=== PATIENT | male | born 1965 | race African-American/Black ===

== ENCOUNTER 2019-12-24 06:21 | Inpatient (IN) | payer MEDICAID ==
[~2019-12-24] VITALS: Ht 170.2 cm; Wt 56.7 kg
[~2019-12-24 06:21] MED LIST: AMLO10TA4 PO; ATEN-177 PO; BENA20TA77 PO; ECOTRIN PO; EPIVIR PO; ETRA25TA PO; LOSA25TA3 PO; RALT100T PO; TERA2CAP16 PO; TRAM50TA94 PO
[2019-12-24] MEDS ORDERED: SODIUM CHLORIDE 0.9% 250 ML IV ONE ×2 (06:45→08:15)
[2019-12-24 07:26] LABS: BASOPHILS % 0.7 % (0.0-2.0); EOSINOPHILS % 0.9 % (0.0-5.0); HEMATOCRIT. 25.7 % (42.0-52.0); HEMOGLOBIN. 8.6 g/dL (14.0-18.0); LYMPHOCYTES % 19.3 % (20.0-50.0); MEAN CORPUSCULAR HEMOGLOBIN 32.7 pg (28.0-32.0); MEAN CORPUSCULAR VOLUME 97.9 fL (80.0-94.0); MEAN PLATELET VOLUME 8.1 fl (7.4-10.4); MONOCYTES % 8.1 % (2.0-8.0); PLATELET 181 x1000/uL (130-400); RED BLOOD CELL COUNT 2.62 mill/uL (4.7-6.1); RED CELL DISTRIBUTION WIDTH 17.1 % (11.6-14.6)
[2019-12-24 07:34] LABS: CHLORIDE 104 mEq/L (98-107)
[2019-12-24 07:41] LABS: INR 1.2; PROTHROMBIN TIME 12.4 sec (9.6-11.0)
[2019-12-24] MEDS ORDERED: PIPERACILLIN/TAZ 3.375G PREMIX 50 ML IV ONE (08:15)
[2019-12-24] MEDS ORDERED: VANCOMYCIN 1 G PREMIX 200 ML IV ONE (08:15)
[2019-12-24] MEDS: VANCOMYCIN 500 MG PREMIX 100 ML IV NR ×2 (10:36→13:44)
[2019-12-24 15:38] VITALS: BP 103/61
[2019-12-24] MEDS ORDERED: ACETAMINOPHEN 325MG TABLET PO PRN (15:45)
[2019-12-24] MEDS ORDERED: DOCUSATE SODIUM 100MG CAPSULE PO PRN (15:45)
[2019-12-24] MEDS ORDERED: NON FORMULARY PATIENT HOME MED XX SCH (15:45)
[2019-12-24] MEDS ORDERED: HYDROCODONE/ACETAMINOPHEN 5/325MG TABLET PO PRN (15:45)
[2019-12-24] MEDS ORDERED: IPRATROPIUM/ALBUTEROL 0.5-3(2.5)MG/3ML NEB HHN PRN (15:45)
[2019-12-24] MEDS ORDERED: ONDANSETRON HCL 4MG/2ML INJ IV PRN (15:45)
[2019-12-24] MEDS ORDERED: LORAZEPAM 0.5MG TABLET PO PRN (15:45)
[2019-12-24 16:00] VITALS: BP 93/58
[2019-12-24] MEDS: PANTOPRAZOLE SODIUM 40 MG/VIAL IV SCH (17:22)
[2019-12-24] MEDS: PIPERACILLIN/TAZOBACTAM 2.25 G in DEXTROSE 5% WATER 50 ML IV SCH (17:22)
[2019-12-24 20:00] VITALS: BP_SYST 89; BP_SYST 98; BP_SYST 99; BP_DIAS 53; BP_DIAS 54; BP_DIAS 56
[2019-12-24 20:29] LABS: FOLIC ACID (FOLATE) SERUM 16.5 ng/mL (>5.38)
[2019-12-25] VITALS: BP 100/50
[2019-12-25] MEDS: PIPERACILLIN/TAZOBACTAM 2.25 G in DEXTROSE 5% WATER 50 ML IV SCH ×3 (03:23→17:11)
[2019-12-25 04:00] VITALS: BP 99/56
[2019-12-25 07:10] LABS: BASOPHILS % 0.3 % (0.0-2.0); EOSINOPHILS % 0.5 % (0.0-5.0); HEMATOCRIT. 26.5 % (42.0-52.0); HEMOGLOBIN. 8.8 g/dL (14.0-18.0); LYMPHOCYTES % 8.2 % (20.0-50.0); MEAN CORPUSCULAR HEMOGLOBIN 32.9 pg (28.0-32.0); MEAN CORPUSCULAR VOLUME 99.5 fL (80.0-94.0); MEAN PLATELET VOLUME 8.4 fl (7.4-10.4); MONOCYTES % 7.8 % (2.0-8.0); NEUTROPHILS % 83.2 % (40.0-76.0); PLATELET 175 x1000/uL (130-400); RED BLOOD CELL COUNT 2.67 mill/uL (4.7-6.1); RED CELL DISTRIBUTION WIDTH 17.5 % (11.6-14.6)
[2019-12-25 08:00] VITALS: BP_SYST 100; BP_SYST 96; BP_SYST 99; BP_DIAS 55; BP_DIAS 56; BP_DIAS 62
[2019-12-25] MEDS: PANTOPRAZOLE SODIUM 40 MG/VIAL IV SCH ×2 (09:59→17:11)
[2019-12-25] MEDS: SODIUM HYPOCHLORITE 0.125% 473ML SOLUTION TOP SCH (09:59)
[2019-12-25 12:00] VITALS: BP 105/69
[2019-12-25] MEDS ORDERED: VANCOMYCIN 500 MG PREMIX 100 ML IV SCH (12:00)
[2019-12-25 16:00] VITALS: BP 109/68
[2019-12-25 20:00] VITALS: BP 115/74
[2019-12-26] VITALS: BP 115/75
[2019-12-26] MEDS: PIPERACILLIN/TAZOBACTAM 2.25 G in DEXTROSE 5% WATER 50 ML IV SCH ×3 (02:28→17:58)
[2019-12-26 04:00] VITALS: BP 156/75
[2019-12-26 07:11] LABS: BASOPHILS % 0.7 % (0.0-2.0); EOSINOPHILS % 0.5 % (0.0-5.0); HEMATOCRIT. 27.7 % (42.0-52.0); HEMOGLOBIN. 9.2 g/dL (14.0-18.0); LYMPHOCYTES % 12.8 % (20.0-50.0); MEAN CORPUSCULAR VOLUME 98.8 fL (80.0-94.0); MEAN PLATELET VOLUME 8.3 fl (7.4-10.4); PLATELET 158 x1000/uL (130-400); RED CELL DISTRIBUTION WIDTH 17.1 % (11.6-14.6)
[2019-12-26 08:00] VITALS: BP 132/81
[2019-12-26] MEDS: PANTOPRAZOLE SODIUM 40 MG/VIAL IV SCH ×2 (09:23→16:51)
[2019-12-26] MEDS: SODIUM HYPOCHLORITE 0.125% 473ML SOLUTION TOP SCH (09:23)
[2019-12-26 12:00] VITALS: BP_SYST 135; BP_SYST 139; BP_SYST 156; BP_DIAS 106; BP_DIAS 84; BP_DIAS 98
[2019-12-26 16:00] VITALS: BP 104/66
[2019-12-26] MEDS ORDERED: VANCOMYCIN 500 MG PREMIX 100 ML IV SCH (18:00)
[2019-12-26 20:25] VITALS: BP 133/77
[2019-12-27 00:18] VITALS: BP 148/85
[2019-12-27] MEDS: PIPERACILLIN/TAZOBACTAM 2.25 G in DEXTROSE 5% WATER 50 ML IV SCH ×2 (03:12→09:31)
[2019-12-27 04:00] VITALS: BP 193/83
[2019-12-27 06:04] LABS: BASOPHILS % 0.4 % (0.0-2.0); EOSINOPHILS % 0.2 % (0.0-5.0); HEMATOCRIT. 27.5 % (42.0-52.0); HEMOGLOBIN. 9.2 g/dL (14.0-18.0); LYMPHOCYTES % 11.1 % (20.0-50.0); MEAN CORPUSCULAR HEMOGLOBIN 33.1 pg (28.0-32.0); MEAN CORPUSCULAR VOLUME 98.6 fL (80.0-94.0); MONOCYTES % 7.7 % (2.0-8.0); NEUTROPHILS % 80.6 % (40.0-76.0); PLATELET 183 x1000/uL (130-400); RED BLOOD CELL COUNT 2.79 mill/uL (4.7-6.1)
[2019-12-27 08:00] VITALS: BP 152/69
[2019-12-27] MEDS: PANTOPRAZOLE SODIUM 40 MG/VIAL IV SCH ×2 (09:31→17:27)
[2019-12-27] MEDS: SODIUM HYPOCHLORITE 0.125% 473ML SOLUTION TOP SCH (09:32)
[2019-12-27 12:00] VITALS: BP 130/82
[2019-12-27 16:00] VITALS: BP 136/76
[2019-12-27 16:25] LABS: HEPATITIS A AB IGM NEGATIVE (NEGATIVE)
[2019-12-27 16:55] LABS: HEPATITIS B SURFACE ANTIGEN REACTIVE PEND CONFIR
[2019-12-27 20:00] VITALS: BP 169/76
[2019-12-27] MEDS: METOPROLOL TARTRATE 25MG TABLET PO SCH (21:24)
[2019-12-28] VITALS: BP 128/74
[2019-12-28] MEDS: CLONIDINE 0.1MG TABLET PO PRN (01:16)
[2019-12-28 04:00] VITALS: BP_SYST 110; BP_SYST 114; BP_SYST 163; BP_DIAS 105; BP_DIAS 60; BP_DIAS 69
[2019-12-28 06:56] LABS: BASOPHILS % 0.2 % (0.0-2.0); EOSINOPHILS % 0.1 % (0.0-5.0); HEMATOCRIT. 22.7 % (42.0-52.0); HEMOGLOBIN. 7.7 g/dL (14.0-18.0); LYMPHOCYTES % 10.2 % (20.0-50.0); MEAN CORPUSCULAR HEMOGLOBIN 33.2 pg (28.0-32.0); MEAN CORPUSCULAR VOLUME 97.4 fL (80.0-94.0); MEAN PLATELET VOLUME 8.1 fl (7.4-10.4); NEUTROPHILS % 82.5 % (40.0-76.0); PLATELET 149 x1000/uL (130-400); RED BLOOD CELL COUNT 2.33 mill/uL (4.7-6.1); RED CELL DISTRIBUTION WIDTH 16.9 % (11.6-14.6)
[2019-12-28 08:00] VITALS: BP 157/89
[2019-12-28] MEDS: METOPROLOL TARTRATE 25MG TABLET PO SCH ×2 (08:34→20:35)
[2019-12-28] MEDS: SODIUM HYPOCHLORITE 0.125% 473ML SOLUTION TOP SCH (08:34)
[2019-12-28] MEDS: PANTOPRAZOLE SODIUM 40 MG/VIAL IV SCH ×2 (08:34→17:04)
[2019-12-28 12:00] VITALS: BP 122/74
[2019-12-28 12:45] LABS: T4 FREE 1.19 ng/dL (0.76-1.46)
[2019-12-28 16:00] VITALS: BP 154/86
[2019-12-28 20:00] VITALS: BP 145/64
[2019-12-29] VITALS: BP 115/94
[2019-12-29 04:00] VITALS: BP_SYST 119; BP_SYST 136; BP_DIAS 73; BP_DIAS 80
[2019-12-29 08:00] VITALS: BP 140/82
[2019-12-29 08:00] LABS: BASOPHILS % 0.5 % (0.0-2.0); EOSINOPHILS % 0.1 % (0.0-5.0); HEMATOCRIT. 23.7 % (42.0-52.0); HEMOGLOBIN. 8.1 g/dL (14.0-18.0); LYMPHOCYTES % 12.7 % (20.0-50.0); MEAN CORPUSCULAR HEMOGLOBIN 33.7 pg (28.0-32.0); MEAN CORPUSCULAR VOLUME 98.9 fL (80.0-94.0); MEAN PLATELET VOLUME 8.5 fl (7.4-10.4); MONOCYTES % 6.7 % (2.0-8.0); PLATELET 176 x1000/uL (130-400); RED CELL DISTRIBUTION WIDTH 16.6 % (11.6-14.6)
[2019-12-29] MEDS: METOPROLOL TARTRATE 25MG TABLET PO SCH ×2 (09:07→21:13)
[2019-12-29] MEDS: SODIUM HYPOCHLORITE 0.125% 473ML SOLUTION TOP SCH (09:08)
[2019-12-29] MEDS: PANTOPRAZOLE SODIUM 40 MG/VIAL IV SCH ×2 (09:08→17:50)
[2019-12-29 12:00] VITALS: BP 154/85
[2019-12-29 16:00] VITALS: BP 123/80
[2019-12-29 20:00] VITALS: BP 136/79
[2019-12-30] VITALS: BP_SYST 116; BP_SYST 120; BP_DIAS 75; BP_DIAS 80
[2019-12-30 04:00] VITALS: BP 110/76
[2019-12-30 07:31] LABS: BASOPHILS % 0.2 % (0.0-2.0); EOSINOPHILS % 0.3 % (0.0-5.0); HEMATOCRIT. 24.9 % (42.0-52.0); HEMOGLOBIN. 8.2 g/dL (14.0-18.0); LYMPHOCYTES % 19.3 % (20.0-50.0); MEAN CORPUSCULAR HEMOGLOBIN 32.4 pg (28.0-32.0); MEAN CORPUSCULAR VOLUME 98.7 fL (80.0-94.0); MEAN PLATELET VOLUME 8.1 fl (7.4-10.4); MONOCYTES % 9.2 % (2.0-8.0); PLATELET 172 x1000/uL (130-400); RED BLOOD CELL COUNT 2.52 mill/uL (4.7-6.1); RED CELL DISTRIBUTION WIDTH 16.8 % (11.6-14.6)
[2019-12-30 08:00] VITALS: BP 171/84
[2019-12-30] MEDS: CLONIDINE 0.1MG TABLET PO PRN (09:13)
[2019-12-30] MEDS: METOPROLOL TARTRATE 25MG TABLET PO SCH (09:13)
[2019-12-30] MEDS: SODIUM HYPOCHLORITE 0.125% 473ML SOLUTION TOP SCH (09:14)
[2019-12-30] MEDS: PANTOPRAZOLE SODIUM 40 MG/VIAL IV SCH ×2 (09:14→17:23)
[2019-12-30 12:00] VITALS: BP 117/63
[2019-12-30 16:00] VITALS: BP 125/64
[2019-12-30 20:00] VITALS: BP 130/76
[2019-12-30] MEDS: METOPROLOL TARTRATE 50MG TABLET PO SCH (21:01)
[2019-12-30] MEDS: ACETAMINOPHEN 325MG TABLET PO PRN (21:17)
[2019-12-31] VITALS: BP 103/57
[2019-12-31 04:00] VITALS: BP 110/60
[2019-12-31 08:00] VITALS: BP 130/86
[2019-12-31] MEDS: PANTOPRAZOLE SODIUM 40 MG/VIAL IV SCH ×2 (08:45→17:09)
[2019-12-31] MEDS: METOPROLOL TARTRATE 50MG TABLET PO SCH ×2 (08:46→21:28)
[2019-12-31] MEDS: SODIUM HYPOCHLORITE 0.125% 473ML SOLUTION TOP SCH (08:46)
[2019-12-31 08:56] LABS: BASOPHILS % 0.3 % (0.0-2.0); EOSINOPHILS % 0.5 % (0.0-5.0); HEMATOCRIT. 26.4 % (42.0-52.0); HEMOGLOBIN. 8.8 g/dL (14.0-18.0); LYMPHOCYTES % 9.2 % (20.0-50.0); MEAN CORPUSCULAR HEMOGLOBIN 32.2 pg (28.0-32.0); MEAN CORPUSCULAR VOLUME 97.1 fL (80.0-94.0); MEAN PLATELET VOLUME 8.4 fl (7.4-10.4); MONOCYTES % 6.7 % (2.0-8.0); NEUTROPHILS % 83.3 % (40.0-76.0); PLATELET 207 x1000/uL (130-400); RED BLOOD CELL COUNT 2.72 mill/uL (4.7-6.1); RED CELL DISTRIBUTION WIDTH 16.4 % (11.6-14.6)
[2019-12-31 12:00] VITALS: BP 132/80
[2019-12-31 16:00] VITALS: BP 110/70
[2019-12-31 20:00] VITALS: BP 119/70
[2020-01-01] VITALS: BP 116/68
[2020-01-01 04:00] VITALS: BP 125/70
[2020-01-01 08:00] VITALS: BP 178/86
[2020-01-01] MEDS: PANTOPRAZOLE SODIUM 40 MG/VIAL IV SCH ×2 (08:22→17:42)
[2020-01-01] MEDS: METOPROLOL TARTRATE 50MG TABLET PO SCH ×2 (08:23→22:01)
[2020-01-01] MEDS: SODIUM HYPOCHLORITE 0.125% 473ML SOLUTION TOP SCH (08:23)
[2020-01-01] MEDS: CLONIDINE 0.1MG TABLET PO PRN (08:23)
[2020-01-01 11:56] LABS: BASOPHILS % 0.5 % (0.0-2.0); EOSINOPHILS % 0.4 % (0.0-5.0); HEMATOCRIT. 23.3 % (42.0-52.0); HEMOGLOBIN. 7.9 g/dL (14.0-18.0); LYMPHOCYTES % 14.5 % (20.0-50.0); MEAN CORPUSCULAR HEMOGLOBIN 32.8 pg (28.0-32.0); MEAN CORPUSCULAR VOLUME 97.3 fL (80.0-94.0); MEAN PLATELET VOLUME 7.8 fl (7.4-10.4); MONOCYTES % 5.7 % (2.0-8.0); NEUTROPHILS % 78.9 % (40.0-76.0); PLATELET 161 x1000/uL (130-400); RED BLOOD CELL COUNT 2.39 mill/uL (4.7-6.1); RED CELL DISTRIBUTION WIDTH 16.2 % (11.6-14.6)
[2020-01-01 12:00] VITALS: BP 118/56
[2020-01-01 16:00] VITALS: BP 105/72
[2020-01-01 20:00] VITALS: BP 128/77
[2020-01-01] MEDS: ACETAMINOPHEN 325MG TABLET PO PRN (22:01)
[2020-01-02] VITALS: BP 114/66
[2020-01-02 04:00] VITALS: BP 116/61
[2020-01-02 06:47] LABS: BASOPHILS % 0.4 % (0.0-2.0); EOSINOPHILS % 0.2 % (0.0-5.0); HEMATOCRIT. 22.4 % (42.0-52.0); HEMOGLOBIN. 7.4 g/dL (14.0-18.0); LYMPHOCYTES % 17.7 % (20.0-50.0); MEAN CORPUSCULAR HEMOGLOBIN 32.4 pg (28.0-32.0); MEAN CORPUSCULAR VOLUME 97.8 fL (80.0-94.0); MEAN PLATELET VOLUME 8.1 fl (7.4-10.4); MONOCYTES % 5.7 % (2.0-8.0); PLATELET 151 x1000/uL (130-400); RED BLOOD CELL COUNT 2.29 mill/uL (4.7-6.1); RED CELL DISTRIBUTION WIDTH 16.6 % (11.6-14.6)
[2020-01-02 08:00] VITALS: BP 123/66
[2020-01-02] MEDS: METOPROLOL TARTRATE 50MG TABLET PO SCH ×2 (09:00→21:05)
[2020-01-02] MEDS: PANTOPRAZOLE SODIUM 40 MG/VIAL IV SCH ×2 (10:52→17:51)
[2020-01-02 12:00] VITALS: BP 136/79
[2020-01-02 17:00] VITALS: BP 132/75
[2020-01-02 20:00] VITALS: BP 134/86
[2020-01-02] MEDS ORDERED: EPOETIN ALFA 10000UNITS/ML VIAL SUBCUT SCH (21:00)
[2020-01-02] MEDS: ACETAMINOPHEN 325MG TABLET PO PRN (21:05)
[2020-01-03] VITALS: BP 119/71
[2020-01-03 04:00] VITALS: BP 115/71
[2020-01-03 06:41] LABS: BASOPHILS % 0.4 % (0.0-2.0); EOSINOPHILS % 0.2 % (0.0-5.0); HEMATOCRIT. 22.3 % (42.0-52.0); HEMOGLOBIN. 7.4 g/dL (14.0-18.0); LYMPHOCYTES % 18.7 % (20.0-50.0); MEAN CORPUSCULAR HEMOGLOBIN 32.4 pg (28.0-32.0); MEAN CORPUSCULAR VOLUME 98.2 fL (80.0-94.0); MEAN PLATELET VOLUME 8.1 fl (7.4-10.4); NEUTROPHILS % 75.7 % (40.0-76.0); PLATELET 145 x1000/uL (130-400); RED BLOOD CELL COUNT 2.27 mill/uL (4.7-6.1); RED CELL DISTRIBUTION WIDTH 16.2 % (11.6-14.6)
[2020-01-03 08:00] VITALS: BP 123/68
[2020-01-03] MEDS: PANTOPRAZOLE SODIUM 40 MG/VIAL IV SCH ×2 (09:04→17:58)
[2020-01-03] MEDS: METOPROLOL TARTRATE 50MG TABLET PO SCH ×2 (09:05→21:33)
[2020-01-03 12:00] VITALS: BP 129/69
[2020-01-03 16:00] VITALS: BP 133/76
[2020-01-03] MEDS: ACETAMINOPHEN 325MG TABLET PO PRN (17:58)
[2020-01-03 20:00] VITALS: BP 108/72
[2020-01-03] MEDS ORDERED: CEFEPIME 1,000 MG in DEXTROSE 5% WATER 50 ML IV SCH (20:00)
[2020-01-04] VITALS: BP_SYST 110; BP_SYST 123; BP_DIAS 68; BP_DIAS 70
[2020-01-04 04:00] VITALS: BP 114/64
[2020-01-04 07:39] LABS: BASOPHILS % 0.2 % (0.0-2.0); EOSINOPHILS % 0.4 % (0.0-5.0); HEMATOCRIT. 23.7 % (42.0-52.0); HEMOGLOBIN. 7.7 g/dL (14.0-18.0); LYMPHOCYTES % 16.9 % (20.0-50.0); MEAN CORPUSCULAR VOLUME 101.8 fL (80.0-94.0); MEAN PLATELET VOLUME 8.6 fl (7.4-10.4); MONOCYTES % 6.9 % (2.0-8.0); NEUTROPHILS % 75.6 % (40.0-76.0); PLATELET 131 x1000/uL (130-400); RED BLOOD CELL COUNT 2.33 mill/uL (4.7-6.1); RED CELL DISTRIBUTION WIDTH 16.7 % (11.6-14.6)
[2020-01-04 08:00] VITALS: BP 136/82
[2020-01-04] MEDS: METOPROLOL TARTRATE 50MG TABLET PO SCH (11:08)
[2020-01-04] MEDS: PANTOPRAZOLE SODIUM 40 MG/VIAL IV SCH (11:08)
[2020-01-04 12:00] VITALS: BP 115/79
[2020-01-04 15:32] VITALS: BP 129/72
[2020-01-04 16:00] VITALS: BP 129/72
== END 2020-01-04 16:25 | DRG 466 ==
LOC: ER 06:31 → EDBEDREQTM 06:38 → 5WST 09:49 → EDBEDREQ 10:03 → EDBEDREQSVC 10:03 → EDBEDREQTM 10:03
PROVIDERS: ADMIT Internal Medicine; ATTEND Internal Medicine
PROC: 05H533Z Insertion of Infusion Device into Right Subclavian Vein, Percutaneous Approach (ICD-10-PCS; principal; 2020-01-04)
PROC: B546ZZA Ultrasonography of Right Subclavian Vein, Guidance (ICD-10-PCS; 2020-01-04)
DX: T82.7XXA Infection and inflammatory reaction due to other cardiac and vascular devices, implants and grafts, initial encounter (principal); A41.9 Sepsis, unspecified organism; R65.21 Severe sepsis with septic shock; I12.0 Hypertensive chronic kidney disease with stage 5 chronic kidney disease or end stage renal disease; N18.6 End stage renal disease; D72.821 Monocytosis (symptomatic); I95.3 Hypotension of hemodialysis; D53.9 Nutritional anemia, unspecified; D63.1 Anemia in chronic kidney disease; B19.20 Unspecified viral hepatitis C without hepatic coma; C21.8 Malignant neoplasm of overlapping sites of rectum, anus and anal canal; F17.210 Nicotine dependence, cigarettes, uncomplicated; G62.9 Polyneuropathy, unspecified; G93.41 Metabolic encephalopathy; I31.3 Pericardial effusion (noninflammatory); I49.1 Atrial premature depolarization; I51.7 Cardiomegaly; K21.9 Gastro-esophageal reflux disease without esophagitis; M47.9 Spondylosis, unspecified; M48.061 Spinal stenosis, lumbar region without neurogenic claudication; Z21 Asymptomatic human immunodeficiency virus [HIV] infection status; F19.10 Other psychoactive substance abuse, uncomplicated; I82.622 Acute embolism and thrombosis of deep veins of left upper extremity; Z99.2 Dependence on renal dialysis; I69.30 Unspecified sequelae of cerebral infarction; Z85.048 Personal history of other malignant neoplasm of rectum, rectosigmoid junction, and anus; Z79.899 Other long term (current) drug therapy; E43 Unspecified severe protein-calorie malnutrition; Q27.8 Other specified congenital malformations of peripheral vascular system
CPT/HCPCS: 36415; 70551; 71045; 72141; 72146; 72148; 72192; 73700; 76937; 80048; 80053; 80061; 80202; 82270; 82607; 82728; 82746; 83540; 83550; 83605; 83735; 83880; 84145; 84439; 84443; 84481; 84484; 85025; 86705; 86709; 86803; 86850; 86900; 86920; 87340; 92523; 93005; 93306; 93971; 96365; 97162; 97166; 97530; 97535; 99291; C1725; C9113; J0692; J0885; J2405; J2543; J3370; J7050; J7060

== ENCOUNTER 2020-01-11 05:54 | Emergency (ER) | payer MEDICAID ==
[~2020-01-11] VITALS: Ht 177.8 cm; Wt 75.0 kg
[2020-01-11] MEDS ORDERED: ACETAMINOPHEN 325MG TABLET PO STA (06:16)
[2020-01-11 06:40] LABS: BASOPHILS % 0.4 % (0.0-2.0); EOSINOPHILS % 1.6 % (0.0-5.0); HEMATOCRIT. 24.5 % (42.0-52.0); HEMOGLOBIN. 8.1 g/dL (14.0-18.0); LYMPHOCYTES % 25.7 % (20.0-50.0); MEAN CORPUSCULAR HEMOGLOBIN 32.8 pg (28.0-32.0); MEAN CORPUSCULAR VOLUME 99.2 fL (80.0-94.0); MEAN PLATELET VOLUME 7.7 fl (7.4-10.4); NEUTROPHILS % 62.3 % (40.0-76.0); PLATELET 172 x1000/uL (130-400); RED BLOOD CELL COUNT 2.47 mill/uL (4.7-6.1); RED CELL DISTRIBUTION WIDTH 16.8 % (11.6-14.6)
[2020-01-11 06:47] LABS: CHLORIDE 100 mEq/L (98-107)
[2020-01-11 06:49] LABS: INR 1.1; PROTHROMBIN TIME 11.6 sec (9.6-11.0)
[2020-01-11 14:24] VITALS: BP 130/86
== END 2020-01-11 14:24 | disposition home or self-care (01) ==
LOC: ER 05:54 → SUPCPDRO 16:52
DX: R60.0 Localized edema (principal); I12.0 Hypertensive chronic kidney disease with stage 5 chronic kidney disease or end stage renal disease; N18.6 End stage renal disease; Z99.2 Dependence on renal dialysis
CPT/HCPCS: 36415; 71045; 80053; 83880; 85025; 93005; 93971; 99285

== ENCOUNTER 2020-02-29 09:37 | Inpatient (IN) | payer MEDICAID ==
[~2020-02-29] VITALS: Ht 170.2 cm; Wt 65.8 kg
[2020-02-29 10:30] LABS: BASOPHILS % 0.4 % (0.0-2.0); EOSINOPHILS % 0.4 % (0.0-5.0); HEMATOCRIT. 26.6 % (42.0-52.0); HEMOGLOBIN. 8.8 g/dL (14.0-18.0); LYMPHOCYTES % 13.8 % (20.0-50.0); MEAN CORPUSCULAR HEMOGLOBIN 32.3 pg (28.0-32.0); MEAN CORPUSCULAR VOLUME 97.2 fL (80.0-94.0); MEAN PLATELET VOLUME 8.5 fl (7.4-10.4); MONOCYTES % 4.5 % (2.0-8.0); NEUTROPHILS % 80.9 % (40.0-76.0); PLATELET 94 x1000/uL (130-400); RED BLOOD CELL COUNT 2.73 mill/uL (4.7-6.1); RED CELL DISTRIBUTION WIDTH 16.4 % (11.6-14.6)
[2020-02-29 10:37] LABS: CHLORIDE 97 mEq/L (98-107)
[2020-02-29] MEDS ORDERED: HEPARIN 5000 UNITS/ML VIAL IV PRN ×2 (12:45)
[2020-02-29] MEDS ORDERED: HEPARIN 5000 UNITS/ML VIAL IV SCH (12:45)
[2020-02-29 13:51] LABS: INR 1.1; PARTIAL THROMBOPLASTIN TIME 32.2 sec (23.4-31.0); PROTHROMBIN TIME 11.2 sec (9.6-11.0)
[2020-02-29] MEDS ORDERED: HEPARIN 25,000 UNITS PREMIX 250 ML IV PRN (14:30)
[2020-02-29] MEDS ORDERED: LORAZEPAM 0.5MG TABLET PO PRN (18:15)
[2020-02-29] MEDS ORDERED: ACETAMINOPHEN 325MG TABLET PO PRN (18:15)
[2020-02-29] MEDS ORDERED: CLONIDINE 0.1MG TABLET PO PRN (18:15)
[2020-02-29] MEDS ORDERED: IPRATROPIUM/ALBUTEROL 0.5-3(2.5)MG/3ML NEB HHN PRN (18:15)
[2020-02-29] MEDS ORDERED: DOCUSATE SODIUM 100MG CAPSULE PO PRN (18:15)
[2020-02-29] MEDS ORDERED: ONDANSETRON HCL 4MG/2ML INJ IV PRN (18:15)
[2020-02-29 18:42] VITALS: BP 139/83
[2020-02-29 19:10] VITALS: BP 139/83
[2020-02-29 20:00] VITALS: BP 139/83
[2020-02-29] MEDS ORDERED: ENOXAPARIN 60MG/0.6ML SYR SUBCUT SCH (20:00)
[2020-02-29 20:42] LABS: PHOSPHORUS 2.3 mg/dL (2.5-4.9)
[2020-02-29 22:00] VITALS: BP 125/75
[2020-03-01] VITALS (12 sets, daily range): BP systolic 104–129; BP diastolic 68–80
[2020-03-01] MEDS: ACETAMINOPHEN 325MG TABLET PO PRN (00:54)
[2020-03-01 07:05] LABS: BASOPHILS % 0.3 % (0.0-2.0); EOSINOPHILS % 0.6 % (0.0-5.0); HEMATOCRIT. 23.7 % (42.0-52.0); HEMOGLOBIN. 7.8 g/dL (14.0-18.0); LYMPHOCYTES % 15.4 % (20.0-50.0); MEAN CORPUSCULAR HEMOGLOBIN 31.9 pg (28.0-32.0); MEAN CORPUSCULAR VOLUME 96.8 fL (80.0-94.0); MEAN PLATELET VOLUME 10.3 fl (7.4-10.4); MONOCYTES % 5.6 % (2.0-8.0); NEUTROPHILS % 78.1 % (40.0-76.0); PLATELET 100 x1000/uL (130-400); RED BLOOD CELL COUNT 2.45 mill/uL (4.7-6.1); RED CELL DISTRIBUTION WIDTH 16.3 % (11.6-14.6)
[2020-03-01] MEDS: HYDROCODONE/ACETAMINOPHEN 5/325MG TABLET PO PRN ×2 (07:30→20:03)
[2020-03-01] MEDS ORDERED: ENOXAPARIN 60MG/0.6ML SYR SUBCUT SCH (09:00)
[2020-03-01] MEDS ORDERED: HEPARIN 5000 UNITS/ML VIAL SUBCUT SCH (09:00)
[2020-03-01] MEDS ORDERED: POTASSIUM CHLORIDE 20MEQ TABLET SR PO NR (11:00)
[2020-03-01] MEDS ORDERED: LIDOCAINE HCL 1% 20ML VIAL (Pyxis) INJ ONE (11:17)
[2020-03-01] MEDS ORDERED: NON FORMULARY PATIENT HOME MED XX SCH (12:00)
[2020-03-01] MEDS: AMLODIPINE 10MG TABLET PO SCH (12:32)
[2020-03-01] MEDS: PIPERACILLIN/TAZOBACTAM 2.25 G in DEXTROSE 5% WATER 50 ML IV SCH ×2 (12:32→20:26)
[2020-03-01] MEDS ORDERED: VANCOMYCIN 1250MG in DEXTROSE 5% WATER 250ML IV NR (13:00)
[2020-03-01] MEDS: SODIUM CHLORIDE 0.45% 1,000 ML IV SCH (13:28)
[2020-03-01] MEDS: ATENOLOL 50 MG TABLET PO SCH (13:31)
[2020-03-01] MEDS: LAMIVUDINE 150MG TABLET PO SCH (17:40)
[2020-03-01] MEDS: RALTEGRAVIR 400MG TABLET PO SCH (17:42)
[2020-03-01] MEDS: TERAZOSIN HCL 1MG CAPSULE PO SCH (20:33)
[2020-03-02] VITALS (32 sets, daily range): BP systolic 90–148; BP diastolic 58–87
[2020-03-02] MEDS: ACETAMINOPHEN 325MG TABLET PO PRN ×2 (00:44→18:31)
[2020-03-02] MEDS: PIPERACILLIN/TAZOBACTAM 2.25 G in DEXTROSE 5% WATER 50 ML IV SCH ×3 (03:04→21:47)
[2020-03-02 06:18] LABS: BASOPHILS % 0.7 % (0.0-2.0); EOSINOPHILS % 0.7 % (0.0-5.0); HEMATOCRIT. 21.4 % (42.0-52.0); HEMOGLOBIN. 7.1 g/dL (14.0-18.0); LYMPHOCYTES % 22.6 % (20.0-50.0); MEAN CORPUSCULAR HEMOGLOBIN 31.8 pg (28.0-32.0); MEAN CORPUSCULAR VOLUME 95.8 fL (80.0-94.0); MEAN PLATELET VOLUME 9.8 fl (7.4-10.4); MONOCYTES % 6.4 % (2.0-8.0); NEUTROPHILS % 69.6 % (40.0-76.0); PLATELET 98 x1000/uL (130-400); RED BLOOD CELL COUNT 2.24 mill/uL (4.7-6.1); RED CELL DISTRIBUTION WIDTH 15.5 % (11.6-14.6)
[2020-03-02 08:05] LABS: CHLORIDE 102 mEq/L (98-107)
[2020-03-02] MEDS ORDERED: IOHEXOL-300 50 ML BOTTLE IV ONE ×2 (08:09→09:32)
[2020-03-02] MEDS ORDERED: SODIUM BICARBONATE 4% (2.4MEQ) 5ML VIAL IV ONE (08:09)
[2020-03-02] MEDS ORDERED: LIDOCAINE HCL 1% 20ML VIAL (Pyxis) INJ ONE (08:10)
[2020-03-02 08:16] LABS: PHOSPHORUS 2.3 mg/dL (2.5-4.9)
[2020-03-02] MEDS ORDERED: HEPARIN 5000 UNITS/ML VIAL SUBCUT SCH (09:00)
[2020-03-02] MEDS: ATENOLOL 50 MG TABLET PO SCH (09:00)
[2020-03-02] MEDS: AMLODIPINE 10MG TABLET PO SCH (09:00)
[2020-03-02] MEDS ORDERED: FENTANYL CITRATE/PF 50MCG/ML 2ML VIAL IV ONE (09:35)
[2020-03-02] MEDS ORDERED: FENTANYL CITRATE/PF 50MCG/ML 2ML VIAL ONE (09:37)
[2020-03-02] MEDS: LAMIVUDINE 150MG TABLET PO SCH (11:12)
[2020-03-02] MEDS: RALTEGRAVIR 400MG TABLET PO SCH (11:12)
[2020-03-02] MEDS ORDERED: DIPHENHYDRAMINE 50MG CAPSULE PO NR (18:30)
[2020-03-02] MEDS ORDERED: VANCOMYCIN 500 MG PREMIX 100 ML IV SCH (19:30)
[2020-03-02 21:35] LABS: HEMATOCRIT 25.5 % (42.0-52.0); HEMOGLOBIN 8.6 g/dL (14.0-18.0)
[2020-03-02] MEDS: EPOETIN ALFA-EPBX 10,000 UNIT/ML VIAL SUBCUT SCH (21:48)
[2020-03-02] MEDS: TERAZOSIN HCL 1MG CAPSULE PO SCH (21:48)
[2020-03-02] MEDS: SODIUM CHLORIDE 0.45% 1,000 ML IV SCH (21:54)
[2020-03-03] VITALS (12 sets, daily range): BP systolic 94–138; BP diastolic 59–75
[2020-03-03 07:09] LABS: BASOPHILS % 0.6 % (0.0-2.0); EOSINOPHILS % 0.8 % (0.0-5.0); HEMATOCRIT. 24.3 % (42.0-52.0); HEMOGLOBIN. 8.2 g/dL (14.0-18.0); LYMPHOCYTES % 14.7 % (20.0-50.0); MEAN CORPUSCULAR HEMOGLOBIN 31.4 pg (28.0-32.0); MEAN CORPUSCULAR VOLUME 93.6 fL (80.0-94.0); MEAN PLATELET VOLUME 8.6 fl (7.4-10.4); MONOCYTES % 5.8 % (2.0-8.0); NEUTROPHILS % 78.1 % (40.0-76.0); PLATELET 86 x1000/uL (130-400); RED CELL DISTRIBUTION WIDTH 16.4 % (11.6-14.6)
[2020-03-03 09:09] LABS: ABSOLUTE BASOPHILS 0.1 x10E3/uL (0.0-0.2); ABSOLUTE EOSINOPHILS 0.1 x10E3/uL (0.0-0.4); ABSOLUTE LYMPHOCYTES 1.8 x10E3/uL (0.7-3.1); ABSOLUTE MONOCYTES 0.6 x10E3/uL (0.1-0.9); ABSOLUTE NEUTROPHILS 4.2 x10E3/uL (1.4-7.0); BASOPHILS 1 % (Not Estab.); HEMATOCRIT 19.8 % (37.5-51.0); HEMATOLOGY COMMENT Note: (.); HEMOGLOBIN 6.7 g/dL (13.0-17.7); LYMPHOCYTES 27 % (Not Estab.); MEAN CORPUSCULAR HEMOGLOBIN 31.6 pg (26.6-33.0); MEAN CORPUSCULAR HGB CONC. 33.8 g/dL (31.5-35.7); MEAN CORPUSCULAR VOLUME 93 fL (79-97); MONOCYTES 9 % (Not Estab.); NEUTROPHILS 62 % (Not Estab.); PLATELETS 91 x10E3/uL (150-450); RBC 2.12 x10E6/uL (4.14-5.80); RED CELL DISTRIBUTION WIDTH 14.2 % (11.6-15.4); WBC 6.7 x10E3/uL (3.4-10.8)
[2020-03-03] MEDS: AMLODIPINE 10MG TABLET PO SCH (09:18)
[2020-03-03] MEDS: ATENOLOL 50 MG TABLET PO SCH (09:18)
[2020-03-03 14:10] LABS: % CD 3 POS. LYMPHOCYTES 88.3 % (57.5-86.2); % CD 4 POS. LYMPHOCYTES 11.5 % (30.8-58.5); % CD 8 POS. LYMPH 74.9 % (12.0-35.5); ABSOLUTE CD 3 1589 /uL (622-2402); ABSOLUTE CD 4 HELPER 207 /uL (359-1519); ABSOLUTE CD 8 SUPPRESSOR 1348 /uL (109-897); CD4/CD8 RATIO 0.15 (0.92-3.72)
[2020-03-03] MEDS: TERAZOSIN HCL 1MG CAPSULE PO SCH (20:12)
[2020-03-04] VITALS (12 sets, daily range): BP systolic 95–133; BP diastolic 61–79
[2020-03-04] MEDS: SODIUM CHLORIDE 0.45% 1,000 ML IV SCH ×2 (05:35→21:22)
[2020-03-04 06:48] LABS: BASOPHILS % 0.6 % (0.0-2.0); EOSINOPHILS % 1.6 % (0.0-5.0); HEMATOCRIT. 25.3 % (42.0-52.0); HEMOGLOBIN. 8.6 g/dL (14.0-18.0); MEAN CORPUSCULAR VOLUME 94.3 fL (80.0-94.0); MONOCYTES % 5.7 % (2.0-8.0); NEUTROPHILS % 72.1 % (40.0-76.0); PLATELET 88 x1000/uL (130-400); RED BLOOD CELL COUNT 2.68 mill/uL (4.7-6.1); RED CELL DISTRIBUTION WIDTH 16.2 % (11.6-14.6)
[2020-03-04] MEDS: ATENOLOL 50 MG TABLET PO SCH (09:00)
[2020-03-04] MEDS: AMLODIPINE 10MG TABLET PO SCH (09:00)
[2020-03-04] MEDS ORDERED: LIDOCAINE HCL 4% CREAM 76GM TUBE TP PRN (14:30)
[2020-03-04] MEDS: TERAZOSIN HCL 1MG CAPSULE PO SCH (21:21)
[2020-03-04] MEDS: EPOETIN ALFA-EPBX 10,000 UNIT/ML VIAL SUBCUT SCH (21:21)
[2020-03-05] VITALS (13 sets, daily range): BP systolic 100–123; BP diastolic 63–79
[2020-03-05 06:29] LABS: BASOPHILS % 0.6 % (0.0-2.0); HEMATOCRIT. 25.2 % (42.0-52.0); HEMOGLOBIN. 8.5 g/dL (14.0-18.0); LYMPHOCYTES % 23.7 % (20.0-50.0); MEAN CORPUSCULAR HEMOGLOBIN 31.5 pg (28.0-32.0); MEAN CORPUSCULAR VOLUME 93.7 fL (80.0-94.0); MEAN PLATELET VOLUME 8.6 fl (7.4-10.4); MONOCYTES % 7.2 % (2.0-8.0); NEUTROPHILS % 67.5 % (40.0-76.0); PLATELET 85 x1000/uL (130-400); RED BLOOD CELL COUNT 2.69 mill/uL (4.7-6.1)
[2020-03-05] MEDS ORDERED: LIDOCAINE HCL 1% 20ML VIAL (Pyxis) INJ ONE (08:17)
[2020-03-05 08:45] LABS: INR 1.1; PARTIAL THROMBOPLASTIN TIME 31.7 sec (23.4-31.0); PROTHROMBIN TIME 11.4 sec (9.6-11.0)
[2020-03-05] MEDS: ATENOLOL 50 MG TABLET PO SCH (09:00)
[2020-03-05] MEDS: AMLODIPINE 10MG TABLET PO SCH (09:00)
[2020-03-05] MEDS ORDERED: VANCOMYCIN 500 MG PREMIX 100 ML IV NR (17:00)
[2020-03-05] MEDS: SODIUM CHLORIDE 0.45% 1,000 ML IV SCH (17:25)
[2020-03-05] MEDS: TERAZOSIN HCL 1MG CAPSULE PO SCH (21:00)
[2020-03-06] VITALS (12 sets, daily range): BP systolic 94–120; BP diastolic 48–79
[2020-03-06 07:30] LABS: BASOPHILS % 0.5 % (0.0-2.0); EOSINOPHILS % 1.2 % (0.0-5.0); HEMATOCRIT. 25.8 % (42.0-52.0); HEMOGLOBIN. 8.6 g/dL (14.0-18.0); MEAN CORPUSCULAR HEMOGLOBIN 31.5 pg (28.0-32.0); MEAN CORPUSCULAR VOLUME 94.2 fL (80.0-94.0); MEAN PLATELET VOLUME 8.5 fl (7.4-10.4); MONOCYTES % 8.3 % (2.0-8.0); PLATELET 82 x1000/uL (130-400); RED BLOOD CELL COUNT 2.74 mill/uL (4.7-6.1)
[2020-03-06] MEDS: ATENOLOL 50 MG TABLET PO SCH (09:18)
[2020-03-06] MEDS: AMLODIPINE 10MG TABLET PO SCH (09:19)
[2020-03-06] MEDS: EPOETIN ALFA-EPBX 10,000 UNIT/ML VIAL SUBCUT SCH (20:49)
[2020-03-06] MEDS: TERAZOSIN HCL 1MG CAPSULE PO SCH (20:50)
[2020-03-07] VITALS (12 sets, daily range): BP systolic 107–143; BP diastolic 63–80
[2020-03-07 05:58] LABS: BASOPHILS % 0.5 % (0.0-2.0); EOSINOPHILS % 0.9 % (0.0-5.0); HEMATOCRIT. 26.4 % (42.0-52.0); HEMOGLOBIN. 8.8 g/dL (14.0-18.0); LYMPHOCYTES % 20.8 % (20.0-50.0); MEAN CORPUSCULAR HEMOGLOBIN 31.7 pg (28.0-32.0); MEAN PLATELET VOLUME 8.3 fl (7.4-10.4); MONOCYTES % 6.3 % (2.0-8.0); NEUTROPHILS % 71.5 % (40.0-76.0); PLATELET 108 x1000/uL (130-400); RED BLOOD CELL COUNT 2.78 mill/uL (4.7-6.1); RED CELL DISTRIBUTION WIDTH 16.5 % (11.6-14.6)
[2020-03-07] MEDS: AMLODIPINE 10MG TABLET PO SCH (09:00)
[2020-03-07] MEDS: ATENOLOL 50 MG TABLET PO SCH (09:00)
[2020-03-07] MEDS ORDERED: VANCOMYCIN 750 MG PREMIX 150 ML IV SCH ×2 (16:00→21:00)
[2020-03-08] VITALS (12 sets, daily range): BP systolic 105–134; BP diastolic 62–83
[2020-03-08] MEDS: TERAZOSIN HCL 1MG CAPSULE PO SCH ×2 (01:41→21:07)
[2020-03-08 06:42] LABS: BASOPHILS % 0.5 % (0.0-2.0); EOSINOPHILS % 1.7 % (0.0-5.0); HEMATOCRIT. 26.1 % (42.0-52.0); HEMOGLOBIN. 8.7 g/dL (14.0-18.0); LYMPHOCYTES % 21.6 % (20.0-50.0); MEAN CORPUSCULAR VOLUME 95.4 fL (80.0-94.0); MEAN PLATELET VOLUME 8.1 fl (7.4-10.4); MONOCYTES % 7.4 % (2.0-8.0); NEUTROPHILS % 68.8 % (40.0-76.0); PLATELET 101 x1000/uL (130-400); RED BLOOD CELL COUNT 2.73 mill/uL (4.7-6.1); RED CELL DISTRIBUTION WIDTH 16.7 % (11.6-14.6)
[2020-03-08] MEDS: AMLODIPINE 10MG TABLET PO SCH (08:34)
[2020-03-08] MEDS: ATENOLOL 50 MG TABLET PO SCH (08:35)
[2020-03-09] VITALS (23 sets, daily range): BP systolic 101–117; BP diastolic 62–77
[2020-03-09 06:38] LABS: INR 1.1; PARTIAL THROMBOPLASTIN TIME 29.9 sec (23.4-31.0); PROTHROMBIN TIME 11.7 sec (9.6-11.0)
[2020-03-09 06:59] LABS: BASOPHILS % 0.7 % (0.0-2.0); EOSINOPHILS % 1.3 % (0.0-5.0); HEMATOCRIT. 26.4 % (42.0-52.0); HEMOGLOBIN. 8.7 g/dL (14.0-18.0); LYMPHOCYTES % 22.6 % (20.0-50.0); MEAN CORPUSCULAR HEMOGLOBIN 31.9 pg (28.0-32.0); MEAN CORPUSCULAR VOLUME 96.8 fL (80.0-94.0); MEAN PLATELET VOLUME 8.1 fl (7.4-10.4); MONOCYTES % 6.6 % (2.0-8.0); NEUTROPHILS % 68.8 % (40.0-76.0); PLATELET 115 x1000/uL (130-400); RED BLOOD CELL COUNT 2.72 mill/uL (4.7-6.1); RED CELL DISTRIBUTION WIDTH 17.5 % (11.6-14.6)
[2020-03-09] MEDS: AMLODIPINE 10MG TABLET PO SCH (09:00)
[2020-03-09] MEDS: ATENOLOL 50 MG TABLET PO SCH (09:00)
[2020-03-09] MEDS ORDERED: LIDOCAINE HCL/EPINEPHRINE 1%-EPI 1:100,000 20 ML VIAL ONE (09:49)
[2020-03-09] MEDS ORDERED: LIDOCAINE HCL 1% 20ML VIAL (Pyxis) INJ ONE (09:49)
[2020-03-09] MEDS ORDERED: SODIUM BICARBONATE 4% (2.4MEQ) 5ML VIAL IV ONE (09:49)
[2020-03-09] MEDS ORDERED: HEPARIN 1000 UNITS/ML 10ML ONE (09:57)
[2020-03-09] MEDS ORDERED: FENTANYL CITRATE/PF 50MCG/ML 2ML VIAL ONE (10:25)
[2020-03-09] MEDS ORDERED: FENTANYL CITRATE/PF 50MCG/ML 2ML VIAL IV NR (10:25)
== END 2020-03-09 18:21 | DRG 721 ==
LOC: ER 09:50 → 5EST 16:31 → UNDOADMIN 16:31 → ENRESERV 17:25 → ER 17:52
PROVIDERS: ADMIT Internal Medicine; ATTEND Internal Medicine
PROC: 0JPV3XZ Removal of Tunneled Vascular Access Device from Upper Extremity Subcutaneous Tissue and Fascia, Percutaneous Approach (ICD-10-PCS; principal; 2020-03-01)
PROC: B51N1ZZ Fluoroscopy of Left Upper Extremity Veins using Low Osmolar Contrast (ICD-10-PCS; 2020-03-02)
PROC: B5181ZZ Fluoroscopy of Superior Vena Cava using Low Osmolar Contrast (ICD-10-PCS; 2020-03-02)
PROC: 30233N1 Transfusion of Nonautologous Red Blood Cells into Peripheral Vein, Percutaneous Approach (ICD-10-PCS; 2020-03-02)
PROC: 5A1D70Z Performance of Urinary Filtration, Intermittent, Less than 6 Hours Per Day (ICD-10-PCS; 2020-03-02)
PROC: 5A1D70Z Performance of Urinary Filtration, Intermittent, Less than 6 Hours Per Day (ICD-10-PCS; 2020-03-04)
PROC: 06H033Z Insertion of Infusion Device into Inferior Vena Cava, Percutaneous Approach (ICD-10-PCS; 2020-03-05)
PROC: B5191ZA Fluoroscopy of Inferior Vena Cava using Low Osmolar Contrast, Guidance (ICD-10-PCS; 2020-03-05)
PROC: B549ZZA Ultrasonography of Inferior Vena Cava, Guidance (ICD-10-PCS; 2020-03-05)
PROC: 5A1D70Z Performance of Urinary Filtration, Intermittent, Less than 6 Hours Per Day (ICD-10-PCS; 2020-03-05)
PROC: 5A1D70Z Performance of Urinary Filtration, Intermittent, Less than 6 Hours Per Day (ICD-10-PCS; 2020-03-07)
PROC: 0JH63XZ Insertion of Tunneled Vascular Access Device into Chest Subcutaneous Tissue and Fascia, Percutaneous Approach (ICD-10-PCS; 2020-03-09)
PROC: 02HV33Z Insertion of Infusion Device into Superior Vena Cava, Percutaneous Approach (ICD-10-PCS; 2020-03-09)
PROC: B518ZZA Fluoroscopy of Superior Vena Cava, Guidance (ICD-10-PCS; 2020-03-09)
PROC: B548ZZA Ultrasonography of Superior Vena Cava, Guidance (ICD-10-PCS; 2020-03-09)
DX: T80.211A Bloodstream infection due to central venous catheter, initial encounter (principal); A41.02 Sepsis due to Methicillin resistant Staphylococcus aureus; B19.10 Unspecified viral hepatitis B without hepatic coma; D53.9 Nutritional anemia, unspecified; D69.6 Thrombocytopenia, unspecified; E87.6 Hypokalemia; I12.0 Hypertensive chronic kidney disease with stage 5 chronic kidney disease or end stage renal disease; I82.612 Acute embolism and thrombosis of superficial veins of left upper extremity; I82.622 Acute embolism and thrombosis of deep veins of left upper extremity; N18.6 End stage renal disease; B20 Human immunodeficiency virus [HIV] disease; Y84.8 Other medical procedures as the cause of abnormal reaction of the patient, or of later complication, without mention of misadventure at the time of the procedure; Z20.828 Contact with and (suspected) exposure to other viral communicable diseases; Z86.73 Personal history of transient ischemic attack (TIA), and cerebral infarction without residual deficits; Z99.2 Dependence on renal dialysis; Z79.899 Other long term (current) drug therapy; Y92.89 Other specified places as the place of occurrence of the external cause; I86.8 Varicose veins of other specified sites; R22.9 Localized swelling, mass and lump, unspecified; F19.90 Other psychoactive substance use, unspecified, uncomplicated
CPT/HCPCS: 36415; 36556; 36558; 36589; 36901; 71045; 73060; 73090; 76700; 76937; 77001; 80048; 80053; 80076; 80202; 82270; 83735; 84100; 84132; 85014; 85018; 85025; 86359; 86360; 86850; 86900; 86920; 87070; 87077; 87426; 87536; 93005; 93306; 93922; 93970; 93971; 99152; 99153; 99285; C1725; C1750; C1752; C1769; C1887; J0885; J1642; J1644; J1650; J2543; J3010; J3370; J3490; J7040; J7060; P9016; Q0163; Q9967; G0500

== ENCOUNTER 2020-12-15 12:13 | Inpatient (IN) | payer MEDICAID ==
[~2020-12-15] VITALS: Ht 167.6 cm; Wt 72.6 kg
[2020-12-15] MEDS ORDERED: PIPERACILLIN/TAZ 3.375G PREMIX 50 ML IV ONE (12:45)
[2020-12-15] MEDS ORDERED: SULFAMETHOXAZOLE/TRIMETHOPRIM 800/160MG TABLET PO ONE (12:45)
[2020-12-15] MEDS ORDERED: SODIUM CHLORIDE 0.9% 1,000 ML IV ONE (12:45)
[2020-12-15] MEDS ORDERED: VANCOMYCIN 1 G PREMIX 200 ML IV ONE (12:45)
[2020-12-15 13:08] LABS: CHLORIDE 106 mEq/L (98-107)
[2020-12-15 13:17] LABS: BASOPHILS % 0.5 % (0.0-2.0); EOSINOPHILS % 0.2 % (0.0-5.0); LYMPHOCYTES % 24.9 % (20.0-50.0); MEAN CORPUSCULAR HEMOGLOBIN 28.7 pg (28.0-32.0); MEAN CORPUSCULAR VOLUME 94.4 fL (80.0-94.0); MEAN PLATELET VOLUME 8.3 fl (7.4-10.4); MONOCYTES % 4.9 % (2.0-8.0); NEUTROPHILS % 69.5 % (40.0-76.0); PLATELET 159 x1000/uL (130-400); RED CELL DISTRIBUTION WIDTH 21.3 % (11.6-14.6)
[2020-12-15 13:20] LABS: HEMOGLOBIN. 6.3 g/dL (14.0-18.0)
[2020-12-15 13:21] LABS: HEMATOCRIT. 20.8 % (42.0-52.0)
[2020-12-15 13:22] LABS: INR 1.1; PROTHROMBIN TIME 12.2 sec (9.6-11.0)
[2020-12-15 15:37] LABS: CLARITY URINE CLEAR (CLEAR); COLOR URINE YELLOW (YELLOW); KETONES URINE NEGATIVE (NEGATIVE); LEUKOCYTE ESTERASE URINE NEGATIVE (NEGATIVE); NITRITE URINE NEGATIVE (NEGATIVE); OCCULT BLOOD URINE NEGATIVE (NEGATIVE); PH URINE >=9.0 (4.5-8.0); PROTEIN URINE 2+ (NEGATIVE); SPECIFIC GRAVITY URINE 1.011 (1.005-1.030); UROBILINOGEN URINE 0.2 E.U./dL (0.2-1.0)
[2020-12-15] MEDS ORDERED: ONDANSETRON HCL 4MG/2ML INJ IV PRN (16:00)
[2020-12-15] MEDS ORDERED: ACETAMINOPHEN 325MG TABLET PO PRN (16:00)
[2020-12-15] MEDS ORDERED: CLONIDINE 0.1MG TABLET PO PRN (16:00)
[2020-12-15] MEDS ORDERED: DIPHENHYDRAMINE 50MG/ML VIAL IV PRN (16:00)
[2020-12-15 17:13] LABS: HEPATITIS B SURFACE ANTIGEN REACTIVE PEND CONFIR
[2020-12-15] MEDS ORDERED: PIPERACILLIN/TAZOBACTAM 3.375 G in DEXTROSE 5% WATER 50 ML IV SCH (21:00)
[2020-12-15] MEDS: PIPERACILLIN/TAZOBACTAM 3.375 G in DEXTROSE 5% WATER 50 ML IV SCH (22:09)
[2020-12-15 22:43] VITALS: BP 102/65
[2020-12-16 00:28] VITALS: BP 96/61
[2020-12-16 00:41] LABS: HEMATOCRIT 24.5 % (42.0-52.0); HEMOGLOBIN 7.9 g/dL (14.0-18.0)
[2020-12-16 04:00] VITALS: BP 103/65
[2020-12-16] MEDS: PIPERACILLIN/TAZOBACTAM 3.375 G in DEXTROSE 5% WATER 50 ML IV SCH ×2 (09:32→20:44)
[2020-12-16 09:51] LABS: BASOPHILS % 0.1 % (0.0-2.0); EOSINOPHILS % 0.6 % (0.0-5.0); HEMATOCRIT. 24.6 % (42.0-52.0); HEMOGLOBIN. 7.8 g/dL (14.0-18.0); LYMPHOCYTES % 17.5 % (20.0-50.0); MEAN CORPUSCULAR HEMOGLOBIN 29.6 pg (28.0-32.0); MEAN CORPUSCULAR VOLUME 93.2 fL (80.0-94.0); MEAN PLATELET VOLUME 8.6 fl (7.4-10.4); MONOCYTES % 4.5 % (2.0-8.0); NEUTROPHILS % 77.3 % (40.0-76.0); PLATELET 129 x1000/uL (130-400); RED BLOOD CELL COUNT 2.64 mill/uL (4.7-6.1); RED CELL DISTRIBUTION WIDTH 20.6 % (11.6-14.6)
[2020-12-16 09:54] LABS: CHLORIDE 108 mEq/L (98-107)
[2020-12-16 10:02] LABS: LDL CHOLESTEROL 50 mg/dL (5-100)
[2020-12-16 10:04] LABS: HDL CHOLESTEROL 20 mg/dL (40-59)
[2020-12-16 12:00] VITALS: BP 87/60
[2020-12-16] MEDS ORDERED: DIATR MEGLU/DIATRIZOATE SOLN 30ML PO NR ×2 (12:15→13:45)
[2020-12-16] MEDS ORDERED: VANCOMYCIN 750 MG PREMIX 150 ML IV SCH ×2 (15:00→20:00)
[2020-12-16 15:35] VITALS: BP 109/70
[2020-12-16 16:00] VITALS: BP 101/31
[2020-12-16] MEDS ORDERED: HEPARIN SODIUM 1,000 UNIT/1ML VIAL IV NR (17:45)
[2020-12-16 20:00] VITALS: BP 98/61
[2020-12-17 00:54] VITALS: BP 91/58
[2020-12-17 08:00] VITALS: BP 94/59
[2020-12-17] MEDS: PIPERACILLIN/TAZOBACTAM 3.375 G in DEXTROSE 5% WATER 50 ML IV SCH ×2 (10:14→21:08)
[2020-12-17 12:00] VITALS: BP 100/64
[2020-12-17 13:07] LABS: ABSOLUTE EOSINOPHILS 0.1 x10E3/uL (0.0-0.4); ABSOLUTE LYMPHOCYTES 1.5 x10E3/uL (0.7-3.1); ABSOLUTE MONOCYTES 0.3 x10E3/uL (0.1-0.9); ABSOLUTE NEUTROPHILS 6.7 x10E3/uL (1.4-7.0); BASOPHILS 0 % (Not Estab.); HEMATOLOGY COMMENT Note: (.); HEMOGLOBIN 7.7 g/dL (13.0-17.7); IMMATURE GRANULOCYTES 1 % (Not Estab.); IMMATURE GRANULOCYTES ABSOLUTE 0.1 x10E3/uL (0.0-0.1); LYMPHOCYTES 18 % (Not Estab.); MEAN CORPUSCULAR HEMOGLOBIN 30.3 pg (26.6-33.0); MEAN CORPUSCULAR HGB CONC. 32.1 g/dL (31.5-35.7); MEAN CORPUSCULAR VOLUME 95 fL (79-97); MONOCYTES 3 % (Not Estab.); NEUTROPHILS 77 % (Not Estab.); PLATELETS 162 x10E3/uL (150-450); RBC 2.54 x10E6/uL (4.14-5.80); RED CELL DISTRIBUTION WIDTH 17.7 % (11.6-15.4); WBC 8.6 x10E3/uL (3.4-10.8)
[2020-12-17 15:09] LABS: % CD 3 POS. LYMPHOCYTES 92.1 % (57.5-86.2); % CD 4 POS. LYMPHOCYTES 10.9 % (30.8-58.5); ABSOLUTE CD 3 1382 /uL (622-2402); ABSOLUTE CD 4 HELPER 164 /uL (359-1519); ABSOLUTE CD 8 SUPPRESSOR 1200 /uL (109-897); CD4/CD8 RATIO 0.14 (0.92-3.72)
[2020-12-17 16:00] VITALS: BP 98/62
[2020-12-17 17:43] LABS: BASOPHILS % 0.2 % (0.0-2.0); EOSINOPHILS % 0.5 % (0.0-5.0); HEMOGLOBIN. 7.2 g/dL (14.0-18.0); LYMPHOCYTES % 15.4 % (20.0-50.0); MEAN CORPUSCULAR HEMOGLOBIN 29.9 pg (28.0-32.0); MEAN CORPUSCULAR VOLUME 91.1 fL (80.0-94.0); MONOCYTES % 6.1 % (2.0-8.0); NEUTROPHILS % 77.8 % (40.0-76.0); PLATELET 132 x1000/uL (130-400); RED BLOOD CELL COUNT 2.41 mill/uL (4.7-6.1); RED CELL DISTRIBUTION WIDTH 20.5 % (11.6-14.6)
[2020-12-17 20:00] VITALS: BP 104/66
[2020-12-18] VITALS: BP 110/65
[2020-12-18 04:00] VITALS: BP 98/57
[2020-12-18 06:16] LABS: BASOPHILS % 0.6 % (0.0-2.0); EOSINOPHILS % 0.2 % (0.0-5.0); HEMOGLOBIN. 7.4 g/dL (14.0-18.0); LYMPHOCYTES % 18.9 % (20.0-50.0); MEAN CORPUSCULAR HEMOGLOBIN 29.6 pg (28.0-32.0); MEAN CORPUSCULAR VOLUME 92.2 fL (80.0-94.0); MEAN PLATELET VOLUME 8.3 fl (7.4-10.4); MONOCYTES % 7.9 % (2.0-8.0); NEUTROPHILS % 72.4 % (40.0-76.0); PLATELET 151 x1000/uL (130-400); RED BLOOD CELL COUNT 2.49 mill/uL (4.7-6.1); RED CELL DISTRIBUTION WIDTH 20.5 % (11.6-14.6)
[2020-12-18 08:00] VITALS: BP 94/61
[2020-12-18] MEDS: PIPERACILLIN/TAZOBACTAM 3.375 G in DEXTROSE 5% WATER 50 ML IV SCH ×2 (08:21→20:25)
[2020-12-18 12:00] VITALS: BP 98/59
[2020-12-18] MEDS ORDERED: VANCOMYCIN 1 G PREMIX 200 ML IV SCH (12:00)
[2020-12-18 16:00] VITALS: BP 146/94
[2020-12-18 20:00] VITALS: BP 114/78
[2020-12-19] VITALS (7 sets, daily range): BP systolic 112–118; BP diastolic 68–80
[2020-12-19] MEDS: PIPERACILLIN/TAZOBACTAM 3.375 G in DEXTROSE 5% WATER 50 ML IV SCH ×2 (09:15→21:23)
[2020-12-19 10:11] LABS: HBSAG CONFIRMATION Positive (.); HBSAG SCREEN Confirm. indicated (Negative)
[2020-12-19] MEDS ORDERED: ASPI-1406 MT (13:03)
[2020-12-20] VITALS (10 sets, daily range): BP systolic 102–125; BP diastolic 62–85
[2020-12-20 05:27] LABS: BASOPHILS % 0.8 % (0.0-2.0); EOSINOPHILS % 1.1 % (0.0-5.0); HEMATOCRIT. 22.3 % (42.0-52.0); LYMPHOCYTES % 22.5 % (20.0-50.0); MEAN CORPUSCULAR HEMOGLOBIN 29.2 pg (28.0-32.0); MEAN CORPUSCULAR VOLUME 92.4 fL (80.0-94.0); MONOCYTES % 8.9 % (2.0-8.0); NEUTROPHILS % 66.7 % (40.0-76.0); PLATELET 139 x1000/uL (130-400); RED BLOOD CELL COUNT 2.41 mill/uL (4.7-6.1); RED CELL DISTRIBUTION WIDTH 20.4 % (11.6-14.6)
[2020-12-20] MEDS: PIPERACILLIN/TAZOBACTAM 3.375 G in DEXTROSE 5% WATER 50 ML IV SCH ×2 (09:00→22:59)
[2020-12-20] MEDS ORDERED: HEPARIN SODIUM 1,000 UNIT/1ML VIAL IV NR (10:30)
[2020-12-20 23:41] LABS: HEMATOCRIT 21.8 % (42.0-52.0); HEMOGLOBIN 7.3 g/dL (14.0-18.0)
[2020-12-21] VITALS (10 sets, daily range): BP systolic 107–153; BP diastolic 53–91
== END 2020-12-21 19:56 | DRG 890 ==
LOC: ER 12:25 → 7WST 14:20 → CANRESERV 15:40 → ENRESERV 15:40 → 6WST 12-16 15:33 → 3WST 12-20 22:16
PROVIDERS: ADMIT Internal Medicine; ATTEND Internal Medicine
PROC: 30233N1 Transfusion of Nonautologous Red Blood Cells into Peripheral Vein, Percutaneous Approach (ICD-10-PCS; principal; 2020-12-15)
PROC: 5A1D70Z Performance of Urinary Filtration, Intermittent, Less than 6 Hours Per Day (ICD-10-PCS; 2020-12-15)
PROC: 5A1D70Z Performance of Urinary Filtration, Intermittent, Less than 6 Hours Per Day (ICD-10-PCS; 2020-12-18)
PROC: 5A1D70Z Performance of Urinary Filtration, Intermittent, Less than 6 Hours Per Day (ICD-10-PCS; 2020-12-20)
DX: A41.9 Sepsis, unspecified organism (principal); B20 Human immunodeficiency virus [HIV] disease; N18.6 End stage renal disease; R65.21 Severe sepsis with septic shock; L89.153 Pressure ulcer of sacral region, stage 3; E43 Unspecified severe protein-calorie malnutrition; I12.0 Hypertensive chronic kidney disease with stage 5 chronic kidney disease or end stage renal disease; B19.20 Unspecified viral hepatitis C without hepatic coma; D64.9 Anemia, unspecified; Z20.822 Contact with and (suspected) exposure to COVID-19; Z86.73 Personal history of transient ischemic attack (TIA), and cerebral infarction without residual deficits; Z85.038 Personal history of other malignant neoplasm of large intestine; Z99.2 Dependence on renal dialysis; Z79.899 Other long term (current) drug therapy; Z79.82 Long term (current) use of aspirin; D50.0 Iron deficiency anemia secondary to blood loss (chronic); Z68.25 Body mass index [BMI] 25.0-25.9, adult
CPT/HCPCS: 36415; 71045; 74176; 80048; 80053; 80061; 80202; 81003; 82040; 83605; 84134; 84145; 84443; 84484; 85014; 85018; 85025; 86078; 86359; 86360; 86705; 86709; 86803; 86850; 86900; 86920; 87340; 93005; 93970; 99291; A6261; C1893; J1644; J2543; J3370; J7030; J7040; J7060; P9016; Q9963; U0003; U0005